=== PATIENT | male | born 1945 | race Caucasian/White ===

== ENCOUNTER 2024-03-30 14:31 | Emergency (ER) | payer OTHER, SELFPAY ==
[2024-03-30 14:36] VITALS: BP 143/60
--- NOTE | 2024-03-30 16:16 | ED.GENMED ---
History of Present Illness
General
Chief Complaint: Cough
Time Seen by Provider: 03/30/24 15:59
History of Present Illness
History of Present Illness:
78-year-old male with history of hyperlipidemia presents the emergency department for evaluation of intractable cough for the past several days. Cough is productive of yellow mucus. Denies any chest pain or shortness of breath at this time. No
leg swelling. No fevers or night sweats. No ill contacts at home.
Past History
Past History
ED Past Medical History: None
ED Past Surgical History: Orthopedic (Ankle surgery)
Social History
Tobacco: Former smoker
Alcohol: Daily
Drug: None
Personal:
Living: with family
Review of Systems
Review of Systems
Allergies reviewed?: Yes
All Other Systems: ROS reviewed and negative except as documented in HPI and ROS
Phy Exam
Physical Exam
Physical Exam:
GEN: Well appearing, NAD, WDWN
HEENT: Oral mucosa moist, no scleral icterus, no JVD
Cardiac: Regular rate and rhythm, no murmurs
Lung: No respiratory distress, no tachypnea, faint bibasilar crackles, no wheezes
MSK: No gross deformity or injuries
Skin: Good color, no pallor or jaundice, no rashes
Neuro: AO x3, moves all extremities freely
Psych: Calm, cooperative
Course
Orders/Labs/Results
Orders:
Orders
03/30/24 14:39
CXR2 [CR Chest - 2 Views ] Urgent
Comment:
Reason For Exam: coughing for 10 days
Vital Signs
Initial and Last Documented VS:
Initial Vital Signs
Temp Pulse Resp BP Pulse Ox
99.4 F 74 17 143/60 93
03/30/24 14:36 03/30/24 14:36 03/30/24 14:36 03/30/24 14:36 03/30/24 14:36
Last Documented Vital Signs
Temp Pulse Resp BP Pulse Ox
99.4 F 74 17 143/60 93
03/30/24 14:36 03/30/24 14:36 03/30/24 14:36 03/30/24 14:36 03/30/24 14:36
MDM/Problems Addressed
MDM/Problems Addressed:
Chest x-ray is without acute pathology however the patient has bibasilar rales/rhonchi suspicious for atypical pneumonia. Will treat with a 5-day course of doxycycline. At this point I see no indication for labs
*Critical Care Note
Total Time (30-74mins, 75-104mins- exclusive of procedures): Not Applicable
ED Attending Note
-
Portions of this chart may have been created with voice recognition software.� Occasional wrong word or��sound alike� substitutions may have occurred due to the inherent limitations of voice recognition software.
Discharge Plan
Departure
Patient Disposition: Home (Routine Discharge)
Date of Disposition: 03/30/24
Time of Disposition: 16:22
Patient with high blood pressure during this ER visit?: No
Discharge Problem:
Atypical pneumonia
Instructions: Pneumonia in adults - Discharge instructions
Prescriptions:
New
doxycycline hyclate 100 mg tablet
100 mg PO BID 5 Days Qty: 10 0RF
benzonatate 200 mg capsule
200 mg PO TID PRN (Reason: Cough) Qty: 20 0RF
No Action
aspirin 325 mg Tablet
650 mg PO DAILY
lovastatin 20 mg tablet
20 mg PO HS
finasteride 5 mg tablet
5 mg PO DAILY
amoxicillin-pot clavulanate [amoxicillin-pot clavulanate] 875-125 mg tablet
1 tab PO Q12 8 Days Qty: 16 0RF
acetaminophen [acetaminophen] 325 mg tablet
650 mg PO Q4HPRN PRN (Reason: mild pain) Qty: 1 0RF
ibuprofen 200 mg tablet
400 - 600 mg PO Q6HPRN PRN (Reason: moderate pain) Qty: 1 0RF
oxycodone 5 mg tablet
5 mg PO Q4HPRN PRN (Reason: breakthrough/severe pain) Qty: 5 0RF
Interventions
Interventions:
*General Assessment Last Done: 03/30/24 14:38
*Neglect/Abuse Screening Last Done: 03/30/24 14:38
*ED COVID-19 Vaccine History Last Done: 03/30/24 14:38
*Nursing Disposition Last Done: 03/30/24 16:36
Discharge Date and Time
Discharge Date/Time: 03/30/24 16:38
Print Language: CITIZEN OF [place]
== END 2024-03-30 16:38 | disposition home or self-care (01) ==
LOC: EMR 14:31
PROVIDERS: EMERGENCY PHYSICIAN Emergency Medicine; FAMILY PHYSICIAN Student in an Organized Health Care Education/Training Program
DX: J18.9 Pneumonia, unspecified organism (principal); E78.5 Hyperlipidemia, unspecified; Z87.891 Personal history of nicotine dependence
CPT/HCPCS: 99283; 71046

== ENCOUNTER → 2024-05-24 08:41 | Outpatient (REF) | payer SELFPAY | LOC: HWRAD 08:41 | PROVIDERS: ATTENDING PHYSICIAN Student in an Organized Health Care Education/Training Program | DX: E78.2 Mixed hyperlipidemia (principal); I70.0 Atherosclerosis of aorta | CPT/HCPCS: 75571 ==